=== PATIENT | male | born 1990 | race Caucasian/White ===

== ENCOUNTER 2022-09-10 03:35 | Emergency (ER) | payer BC ==
[2022-09-10] MEDS ORDERED: Ketorolac Tromethamine 30 MG/ML VIAL ONE (04:44)
[2022-09-10] MEDS ORDERED: Ondansetron PF 4 MG/2 ML Vial ONE ×2 (04:44→06:27)
[2022-09-10 05:56] LABS: Hemoglobin 19.1 g/dL (14.0-18.0); White Blood Cell (WBC) Count 6.2 10x3/uL (4.8-10.8)
[2022-09-10 05:57] LABS: Mean Corpuscular HGB CONC 33.4 g/dL (32.0-36.0); Mean Corpuscular Hemoglobin 29.8 pg (27.0-31.0); Mean Corpuscular Volume 89.1 fl (78.0-98.0); Mean Platelet Volume 7.4 fL (7.4-10.4); Platelet Count 128 10x3/uL (130-400); RBC Distribution Width 13.3 % (11.5-14.5)
[2022-09-10 06:12] LABS: ALT (SGPT) 9 U/L (8-55); AST (SGOT) 16 U/L (5-34); Albumin 4.2 g/dL (3.5-5.0); Alkaline Phosphatase 127 U/L (40-110); Anion Gap 12 mmol/L (10-20); BUN (Urea Nitrogen) 13 mg/dL (8.9-20.6); Bilirubin, Total 0.3 mg/dL (0.2-1.2); Calc. Creatinine Clearance 0 mL/min (70-130); Calcium 9.1 mg/dL (7.8-10.44); Carbon Dioxide 23 mmol/L (22-29); Chloride 104 mmol/L (98-107); Estimated GFR 122; Glucose 96 mg/dL (70-105); Lipase 209 U/L (8-78); Potassium 3.6 mmol/L (3.5-5.1); Protein, Total 8.2 g/dL (6.0-8.3); Sodium 135 mmol/L (136-145)
[2022-09-10 06:16] LABS: Band 7 % (5-11); Eosinophils 8 % (0-10); Lymphocytes 21 % (21-51); MDiff Complete? YES; Monocytes 6 % (0-10); Neutrophil 33 % (42-75); Platelet Morphology Comment Appears Decreased; Polychromasia SLIGHT = 2-3 cells (100X) (0-2/hpf); Reactive Lymphocytes 25 % (0-10)
[2022-09-10] MEDS ORDERED: Morphine 4 MG/ML VIAL ONE (06:27)
[2022-09-10] MEDS ORDERED: Iopamidol-370 76% 500 ML 1 ML ONE (08:46)
== END 2022-09-10 07:56 | disposition home or self-care (01) ==
LOC: ERS 03:35
DX: B02.9 Zoster without complications (principal); K85.90 Acute pancreatitis without necrosis or infection, unspecified; Z87.891 Personal history of nicotine dependence
CPT/HCPCS: 36415; 74177; 80053; 83690; 85025; 96374; 96375; 96376; J1885; J2270; J2405; Q9967